=== PATIENT | female | born 1950 | race African-American/Black ===

== ENCOUNTER 2020-12-21 19:21 | Emergency (ER) | payer OTHER, MEDICAID ==
[~2020-12-21] VITALS: Ht 152.4 cm; Wt 79.8 kg
[2020-12-21 19:58] VITALS: BP 153/76
--- NOTE | 2020-12-21 20:01 | NUR ---
to lobby a/w bed ambulatory
[2020-12-21] MEDS ORDERED: cephALEXin 500 MG CAP PO ONE (20:55)
[2020-12-21] MEDS ORDERED: NAPROXEN 500 MG TAB PO SCH (20:55)
[2020-12-21] MEDS ORDERED: NAPR-54 PO (21:24)
[2020-12-21] MEDS ORDERED: CEPH-588 PO (21:24)
[2020-12-21 21:36] VITALS: BP 153/76
--- NOTE | 2020-12-21 21:37 | NUR ---
Patient discharged with v/s stable. Written and verbal after care instructions given and explained. Patient verbalized understanding. Ambulatory with steady gait. All questions addressed prior to discharge. Advised to follow up with PMD.
== END 2020-12-21 21:36 | disposition home or self-care (01) ==
LOC: MED 19:21
DX: L03.113 Cellulitis of right upper limb (principal)
CPT/HCPCS: 73110; 99283

== ENCOUNTER 2022-06-11 06:42 | Emergency (ER) | payer OTHER, MEDICAID ==
[~2022-06-11] VITALS: Ht 162.6 cm; Wt 81.6 kg
[~2022-06-11 06:42] MED LIST: CEPH-588 PO; NAPR-54 PO
[2022-06-11 06:43] VITALS: BP 164/91
[2022-06-11] MEDS ORDERED: DICYCLOMINE HCL LIQUID 20 MG, ALUMINUM HYD/MAG/SIMETHICONE 30 ML, LIDOCAINE VISCOUS 2% ... PO ONE ×3 (07:20)
[2022-06-11] MEDS ORDERED: NACL 0.9% 1,000 ML IV ONE (07:20)
--- NOTE | 2022-06-11 08:04 | NUR ---
LAB AT BEDSIDE.
--- NOTE | 2022-06-11 08:14 | NUR ---
71 Y/O F BIBA FROM HOME AFTER PT WOKE FROM SLEEP THIS AM AND EXPERIENCED EPISODE OF VERTIGO WITH 1 EPISODE OF VOMITING. PT C/O NO PAIN AT THIS TIME. NKA PMH: BRAIN ANEURYSM, HTN
[2022-06-11 08:17] LABS: BASOPHILS % (AUTO) 0.7 % (0.0-2.0); EOSINOPHILS # (AUTO) 0.1 K/uL (0-0.4); HEMATOCRIT 37.9 % (36-48); HEMOGLOBIN 12.5 g/dL (12.0-16.0); LYMPHOCYTES # (AUTO) 1.1 K/uL (2.5-16.5); LYMPHOCYTES % (AUTO) 15.4 % (20.5-51.1); MEAN CORPUSCULAR HEMOGLOBIN 28 pg (27-31); MEAN CORPUSCULAR HGB CONC 33 g/dL (33-37); MEAN CORPUSCULAR VOLUME 83.8 fL (80-94); MONOCYTES # (AUTO) 0.5 K/uL (0.8-1.0); MONOCYTES % (AUTO) 6.3 % (1.7-9.3); NEUTROPHILS # (AUTO) 5.7 K/uL (1.8-7.7); NEUTROPHILS % (AUTO) 76.6 % (42.2-75.2); PLATELET COUNT (AUTO) 202 K/uL (140-450); RED BLOOD CELL COUNT(AUTO) 4.52 MIL/uL (4.20-5.40); RED CELL DISTRIBUTION WIDTH 15.2 % (11.6-13.7); WHITE BLOOD COUNT (AUTO) 7.4 K/uL (4.8-10.8)
[2022-06-11 08:31] LABS: ANION GAP 12.2 (8-16); CARBON DIOXIDE 27.1 mmol/L (21-32); CHLORIDE 103 mmol/L (98-107); CREATININE 1.4 mg/dL (0.6-1.3); GLUCOSE 117 mg/dL (74-106); POTASSIUM 3.3 mmol/L (3.5-5.1); SODIUM SERUM 139 mmol/L (136-145); UREA NITROGEN, BLOOD 35 mg/dL (7-18)
[2022-06-11] MEDS ORDERED: ALUMINUM HYD/MAG/SIMETHICONE 30 ML UDC ONE (08:35)
[2022-06-11] MEDS ORDERED: DICYCLOMINE HCL LIQUID 10 MG/5 ML UDC ONE (08:40)
[2022-06-11] MEDS ORDERED: METOCLOPRAMIDE 10 MG/2 ML INJ VIAL IVP ONE (08:55)
[2022-06-11] MEDS ORDERED: MECL-303 PO (09:06)
[2022-06-11] MEDS ORDERED: SODIUM PHOS / POTASSIUM PHOS 1 PKT PDR PO SCH (09:10)
[2022-06-11 10:00] VITALS: BP 120/43
--- NOTE | 2022-06-11 10:01 | NUR ---
Patient discharged with v/s stable. Written and verbal after care instructions given and explained. Patient alert, oriented and verbalized understanding of instructions. Ambulatory with steady gait. All questions addressed prior to discharge. ID band removed. Patient advised to follow up with PMD. Rx of MECLIZINE HCI given. Opportunity to ask questions provided and answered.
--- NOTE | 2022-06-11 10:04 | NUR ---
The patient's care was reviewed and supervised by Chaparrita Hyatt RN.
== END 2022-06-11 10:01 | disposition home or self-care (01) ==
LOC: MED 06:42
DX: R42 Dizziness and giddiness (principal); R11.2 Nausea with vomiting, unspecified; R10.13 Epigastric pain; Z79.899 Other long term (current) drug therapy; Z79.1 Long term (current) use of non-steroidal anti-inflammatories (NSAID); Z79.2 Long term (current) use of antibiotics
CPT/HCPCS: 36415; 80048; 85025; 96361; 96374; 99283; J2765